=== PATIENT | female | born 1960 | race African-American/Black ===

== ENCOUNTER 2017-07-08 10:40 | Inpatient (IN) | payer MEDICARE, OTHER ==
[2017-07-08] MEDS ORDERED: Dextrose 50% Abboject 50 ML SYRINGE SLOW IVP PRN (13:23)
[2017-07-08] MEDS ORDERED: Dextrose 5% in Water 1,000 ML IV PRN (13:23)
--- NOTE | 2017-07-08 14:29 | HP ---
DATE OF ADMISSION: 07/08/2017 CHIEF COMPLAINT: Recent left total knee replacement here for therapy. BRIEF HISTORY: This is a 57-year-old overweight -[place] female with extensive medical histo ry including multiple endocrine neoplasias, intracranial aneurysms and recurrent DVT, was admitted to [facility] for left total knee replacement. She apparently was bridged with hep michelle. She underwent left total knee replacement and has been started back on her warfarin. She stat es that she continues to have significant numbness in her left leg and is unable to feel anything. S he also states that she is having trouble with urinary incontinence which started after the surgery. She denies any history of similar episodes in the past. She denies any fever or chills. She denies any chest pain or shortness of breath. She apparently has significant allergies to foods and medica tions. She has improved sufficiently that they feel that she would be a good candidate for therapy a nd currently, she states that she is in pain. She denies any other concerns or questions. PAST MEDICAL HISTORY: 1. 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 2. Hyperparathyroidism, requiring surgery. 3. Hypercoagulable state causing multiple DVTs, on long-term Coumadin. 4. History of IVC filter placement. 5. Cerebral aneurysm. 6. Obstructive sleep apnea. 7. Diabetes mellitus type 2. 8. Morbid obesity. PAST SURGICAL HISTORY: 1. Parathyroidectomy. 2. IVC filter placement. 3. Intracranial aneurysm clipping. 4. Right total knee replacement. 5. Left total knee replacement recently. 6. Multiple arthroscopies. 7. History of lipoma removal. ALLERGIES: Multiple allergies including PENICILLIN, ERYTHROMYCIN, ACTONEL, LOVENOX, IBUPROFEN, TRAMA DOL, and she states that morphine causes hallucinations, but she has been taking morphine here for pa in in the hospital without any issues. FAMILY HISTORY: Positive for multiple endocrine neoplasia. PSYCHOSOCIAL HISTORY: Retired from the . No tobacco, alcohol or IV drug abuse. She is adrienne ied. CURRENT MEDICATIONS: She has been transferred here on the following medications: 1. Warfarin 10 mg on Thursday, , Thursday, and 5 mg on other days. 2. 70/30 insulin 95 units b.i.d. 3. Protonix 80 mg daily. 4. Dilantin 300 mg daily. She is also on bromocriptine from home and carboxymethylcellulose eye bronson ps, vitamin D3 and aspirin. She is also to take hydrocodone 10/325 q.4 h p.r.n. sleep. REVIEW OF SYSTEMS: CARDIOVASCULAR SYSTEM: Denies any chest pain, shortness of breath, palpitations, paroxysmal nocturna l dyspnea, orthopnea, pedal edema. RESPIRATORY SYSTEM: Denies any chronic cough, expectoration or pleuritic type chest pain. GASTROINTESTINAL SYSTEM: Denies any nausea, vomiting, diarrhea, constipation, hematemesis, melena, h ematochezia. GENITOURINARY SYSTEM: Does have urinary incontinence. CENTRAL NERVOUS SYSTEM: Generalized weakness. MUSCULOSKELETAL SYSTEM: Pain in her left knee. OBJECTIVE: GENERAL: This is very pleasant 57-year-old overweight -[place] female resting comfortably in no acute distress. She responds appropriately to questions. She is alert, awake, and oriented x3. [employer] system has been done and she just came back up. VITAL SIGNS: I do not have any vital signs in the chart. HEENT: Normocephalic, atraumatic. Pupils equal and reactive to light and accommodation. NECK: No JVD, thyromegaly, cervical adenopathy, throat exudates or carotid bruits. CARDIOVASCULAR SYSTEM: S1, S2, rate and rhythm regular. RESPIRATORY SYSTEM: Normal vesicular breath sounds heard in all lung awan. ABDOMEN: Soft, obese, nontender, bowel sounds heard in all quadrants. EXTREMITIES: Without cyanosis or clubbing. Left knee incision with dressing, 1+ edema to the left l eg. CENTRAL NERVOUS SYSTEM: Grossly nonfocal except for weakness. She states that her left leg still fe els numb. LABORATORY VALUES: Pending. IMPRESSION: 1. Status post left total knee replacement. 2. History of multiple deep venous thromboses and inferior vena cava filter placement, on warfarin. 3. Multiple endocrine neoplasia type 1. 4. Diabetes mellitus type 2. 5. Pituitary adenoma, requiring bromocriptine. 6. Multiple allergies. 7. Deconditioning. PLAN: 1. An 1800-calorie heart healthy diet. 2. Dietary dietitian consult. 3. Continue warfarin and try to keep INR between 2 and 3. 4. Incision care. 5. Physical therapy. 6. Routine laboratory values. 7. Continue home medications. 8. Accu-Chek and sliding scale coverage. 9. Decubitus precautions. 10. Discussed with the patient in detail and all questions answered.
[2017-07-08] MEDS: HYDROcodone/Acetaminophen 10/325 mg Tablet PO PRN ×2 (14:52→23:06)
[2017-07-08 15:07] VITALS: BMI 50.1
--- NOTE | 2017-07-08 16:06 | ULT ---
LEFT LOWER EXTREMITY VENOUS DOPPLER ULTRASOUND: DATE: 07/08/17. HISTORY: Left lower extremity pain and swelling, recent left knee surgery. TECHNIQUE: Multiplanar, saucedo scale, sonographic imaging of the venous structures of the left lower extremity obt ained with color flow/spectral analysis. FINDINGS: The left common femoral vein, greater saphenous vein, profunda femoral vein, and femoral vein appear patent. Of note, the femoral vein in the mid thigh and distal thigh regions is limited in assessment secondary to body habitus. Popliteal vein is difficult to visualize but probably patent. The poste rior tibial vein is occluded with no blood flow seen. IMPRESSION: Limited assessment of the popliteal vein and distal femoral vein. No definite deep vein thrombosis. There is venous occlusion involving the posterior tibial vein. Results were relayed by the performing air sealing technician to Dr. Dietz at the time of performing thi s examination 07/08/17. CODE CR POS: SHA
[2017-07-08] MEDS ORDERED: Warfarin Sodium 5 MG TAB PO SCH (17:00)
[2017-07-08] MEDS: Warfarin Sodium 5 MG TAB PO SCH (17:25)
[2017-07-08] MEDS: Morphine 4 MG/ML Carpuject SLOW IVP PRN (19:53)
[2017-07-08] MEDS ORDERED: FLU VACC QS2017-18 36 mo. & older 0.5 ML SYRINGE IM ONE (21:00)
[2017-07-08] MEDS: Docusate 100 MG CAP PO SCH (21:10)
[2017-07-08] MEDS: Insulin NPH/Reg Insulin Hm 300 UNITS/3 ML VIAL SC SCH (21:10)
[2017-07-08] MEDS: BROMOCRIPTINE 2.5 MG PO SCH (21:13)
[2017-07-08] MEDS: Polyethylene Glycol 3350 17 GM Packet PO SCH (21:14)
[2017-07-09 06:05] LABS: INR-International Normal Ratio 1.8; Prothrombin Time 21.3 SEC (12.0-14.7)
[2017-07-09 06:06] LABS: #Basophils 0.1 thou/uL (0.0-0.2); #Eosinphils 0.1 thou/uL (0.0-0.7); #Lymphocytes 1.9 thou/uL (1.20-3.40); #Monocytes 0.8 thou/uL (0.11-0.59); #Neutrophils 3.7 thou/uL (1.40-6.50); %Basophils 1.7 % (0.0-1.0); %Lymphocytes 28.7 % (21.0-51.0); %Monocytes 11.9 % (0.0-10.0); %Neutrophils 56.7 % (42.0-75.0); Hemoglobin 10.3 g/dL (12.0-16.0); Mean Corpuscular HGB CONC 30.9 g/dL (32.0-36.0); Mean Corpuscular Hemoglobin 29.8 pg (27.0-31.0); Mean Corpuscular Volume 96.6 fl (81.0-99.0); Platelet Count 224 thou/uL (130-400); RBC Distribution Width 14.8 % (11.5-14.5); Red Blood Cell (RBC) Count 3.44 mill/uL (4.20-5.40); White Blood Cell (WBC) Count 6.6 thou/uL (4.8-10.8)
[2017-07-09 06:16] LABS: Anion Gap 13 mmol/L (10-20); BUN (Urea Nitrogen) 9 mg/dL (9.8-20.1); Calc. Creatinine Clearance 163 mL/min (70-130); Calcium 9.5 mg/dL (7.8-10.44); Carbon Dioxide 27 mmol/L (22-29); Chloride 104 mmol/L (98-107); Estimated GFR-MDRD Greater than 90; Potassium 3.9 mmol/L (3.5-5.1); Sodium 140 mmol/L (136-145)
[2017-07-09 06:25] LABS: Glucose 52 mg/dL (70-105)
[2017-07-09] MEDS: HYDROcodone/Acetaminophen 10/325 mg Tablet PO PRN ×2 (06:25→22:48)
[2017-07-09] MEDS: Docusate 100 MG CAP PO SCH ×2 (09:47→20:24)
[2017-07-09] MEDS: Aspirin 81 mg Enteric Coated Tablet PO SCH (09:48)
[2017-07-09] MEDS: BROMOCRIPTINE 2.5 MG PO SCH ×2 (09:48→20:21)
[2017-07-09] MEDS: Insulin NPH/Reg Insulin Hm 300 UNITS/3 ML VIAL SC SCH ×2 (09:49→20:31)
[2017-07-09] MEDS: Morphine 4 MG/ML Carpuject SLOW IVP PRN ×2 (11:00→15:41)
[2017-07-09] MEDS: Calcitriol 0.25 MCG CAP PO SCH (11:16)
[2017-07-09] MEDS ORDERED: Warfarin Sodium 5 MG TAB PO SCH (12:45)
--- NOTE | 2017-07-09 13:06 | PRG ---
DATE OF SERVICE: 07/09/2017 SUBJECTIVE: Ms. Angeles is doing well except for some pain in her left leg. Denies any chest pain or shortness of breath. Ordered a venous Doppler of her left lower extremity yesterday due to her havi ng significant pain and finding out that she was not completely bridged with heparin after the surger y, heparin was stopped when her INR was 1.6 day before yesterday and yesterday it was 1.6 as well. I have asked the nursing here to give her an extra 5 mg dose for a total of 10 mg yesterday and it is 1.8 today. Venous Doppler shows mostly old clot, but they cannot rule out a new DVT in the popliteal region. Since she has an IVC filter, advised her that it is okay for her to continue to participate with therapy and that I am going to give her another extra dose of 5 mg today and she should be ther apeutic tomorrow. OBJECTIVE: VITAL SIGNS: She is afebrile, heart rate 98, respirations 20, oxygen saturation 98%, blood pressure 135/60. CARDIOVASCULAR: S1, S2 plus. RESPIRATORY: Normal vesicular breath sounds. ABDOMEN: Soft, obese, nontender, bowel sounds heard in all quadrants. EXTREMITIES: Without cyanosis or clubbing. Left knee incision with dressing, evidence for chronic v enous stasis. LABORATORY VALUES: White count of 6.6, H&H is 10.3 and 33.2. Sodium 140, potassium 3.9, BUN and cre atinine is 9 and 0.66. Blood sugar was 52 this morning, it was 276 and 94 and 132 other times. IMPRESSION: 1. Degenerative joint disease, status post left total knee replacement. 2. Coagulopathy and history of recurrent deep venous thrombosis on long-term warfarin. 3. History of IVC filter placement. 4. Multiple endocrine neoplasia type 1. 5. Obesity. 6. Diabetes mellitus type 2. PLAN: 1. Warfarin total of 15 mg today, she is normally scheduled to get 10. 2. Continue with therapy. 3. Monitor laboratory values and blood sugars. 4. A 1800 calorie Heart healthy diet. 5. Incision care. 6. Routine laboratory values. 7. PT, OT evaluate and treat. 8. Discussed with the patient in detail and all questions answered.
[2017-07-09] MEDS: Warfarin Sodium 5 MG TAB PO SCH (17:22)
[2017-07-09] MEDS: Polyethylene Glycol 3350 17 GM Packet PO SCH (20:25)
[2017-07-10] MEDS: Morphine 4 MG/ML Carpuject SLOW IVP PRN ×3 (02:07→16:25)
[2017-07-10 05:38] LABS: INR-International Normal Ratio 1.9; Prothrombin Time 22.4 SEC (12.0-14.7)
[2017-07-10] MEDS: HumaLOG 300 UNITS/3 ML VIAL SC PRN ×2 (06:36→16:30)
[2017-07-10] MEDS: Calcitriol 0.25 MCG CAP PO SCH (09:19)
[2017-07-10] MEDS: Docusate 100 MG CAP PO SCH ×2 (09:19→20:47)
[2017-07-10] MEDS: Aspirin 81 mg Enteric Coated Tablet PO SCH (09:19)
[2017-07-10] MEDS: BROMOCRIPTINE 2.5 MG PO SCH ×2 (09:20→20:49)
[2017-07-10] MEDS: Insulin NPH/Reg Insulin Hm 300 UNITS/3 ML VIAL SC SCH ×2 (09:21→20:55)
--- NOTE | 2017-07-10 09:35 | PRG ---
DATE OF SERVICE: 07/10/2017 SUBJECTIVE: Ms. Angeles is doing well. She states that she feels better today. She denies any compl aints. Her CPM is here, spoke with therapy. I advised them that she is okay to participate in thera py. Her INR is 1.9 this morning, I anticipated it to be more than 2 soon since she got 15 mg of Coum [place] yesterday. No chest pain or shortness of breath. She has an IVC filter. OBJECTIVE: VITAL SIGNS: She is afebrile, heart rate 95, respirations are 18, oxygen saturation is documented as 10 last night and when I rechecked it this morning it was 97, blood pressure is 121/69. CARDIOVASCULAR SYSTEM: S1, S2 plus. RESPIRATORY SYSTEM: Normal vesicular breath sounds. ABDOMEN: Soft, nontender, bowel sounds heard in all quadrants. EXTREMITIES: Without cyanosis or clubbing. IMPRESSION: 1. Right status post total knee replacement. 2. Diabetes mellitus type 2 with fluctuating hypoglycemia. 3. Degenerative joint disease. 4. Coagulopathy requiring long-term warfarin. 5. History of recurrent deep venous thrombosis, status post inferior vena cava filter placement. 6. Multiple endocrine neoplasia type 1, obesity and deconditioning. PLAN: 1. Incision care. 2. Continue to adjust warfarin to get INR between 2 and 3. 3. Physical therapy. 4. CPM. 5. Adjust insulin. 6. Accu-Cheks with sliding scale coverage. 7. Pain control. 8. Nutritional support. 9. Physical therapy. 10. Discussed with patient in detail and all questions answered.
[2017-07-10] MEDS: Warfarin Sodium 5 MG TAB PO SCH (16:25)
[2017-07-10] MEDS ORDERED: Warfarin Sodium 5 MG TAB PO ONE (17:00)
[2017-07-10] MEDS: Polyethylene Glycol 3350 17 GM Packet PO SCH (20:47)
[2017-07-10] MEDS: HYDROcodone/Acetaminophen 10/325 mg Tablet PO PRN (22:26)
[2017-07-11] MEDS: HYDROcodone/Acetaminophen 10/325 mg Tablet PO PRN ×3 (03:43→14:23)
[2017-07-11] MEDS: Morphine 4 MG/ML Carpuject SLOW IVP PRN ×3 (05:21→19:25)
[2017-07-11 05:30] LABS: INR-International Normal Ratio 2.5; Prothrombin Time 27.9 SEC (12.0-14.7)
[2017-07-11] MEDS: Calcitriol 0.25 MCG CAP PO SCH (09:35)
[2017-07-11] MEDS: Insulin NPH/Reg Insulin Hm 300 UNITS/3 ML VIAL SC SCH ×3 (09:35→20:32)
[2017-07-11] MEDS: Docusate 100 MG CAP PO SCH ×2 (09:35→20:32)
[2017-07-11] MEDS: BROMOCRIPTINE 2.5 MG PO SCH ×2 (09:36→20:33)
[2017-07-11] MEDS: Aspirin 81 mg Enteric Coated Tablet PO SCH (09:36)
[2017-07-11] MEDS: HumaLOG 300 UNITS/3 ML VIAL SC PRN (11:06)
[2017-07-11] MEDS: Warfarin Sodium 5 MG TAB PO SCH (17:40)
[2017-07-11] MEDS: Polyethylene Glycol 3350 17 GM Packet PO SCH (20:34)
[2017-07-11] MEDS ORDERED: Insulin NPH/Reg Insulin Hm 300 UNITS/3 ML VIAL SC SCH (21:00)
--- NOTE | 2017-07-11 23:35 | PRG ---
DATE OF SERVICE: 07/11/2017 SUBJECTIVE: The patient is lying in bed, feels well, tolerating her CPM and physical therapy, is con cerned about her DVT, but warfarin has been continued and INR has been done today and is therapeutic. OBJECTIVE: Shows blood pressure is 142/68, O2 sat is 97%, respirations 18, pulse 90, afebrile. Labo ratory shows PT/INR is 2.5. Accu-Cheks do show some hypoglycemia in the afternoon, elevated in the m orning, very labile. White count 6600, hematocrit 33, hemoglobin 10. Lungs are clear. Cardiac exam ination shows regular rhythm. ASSESSMENT: 1. Resolving left total knee. 2. Stable deep venous thrombosis status post inferior vena cava filter and warfarin therapy. 3. Multiple endocrine neoplasia 1 stable, but with fluctuating sugars. PLAN: 1. Continue warfarin 5 mg on Thursday, Thursday, Thursday, and Thursday; 10 mg on Thursday, , and Thursday. 2. Decrease insulin to 30 units twice daily, Humulin N, monitor Accu-Cheks. 3. Continue therapy.
[2017-07-12] MEDS: Morphine 4 MG/ML Carpuject SLOW IVP PRN ×5 (00:04→20:58)
[2017-07-12 05:33] LABS: INR-International Normal Ratio 2.6; Prothrombin Time 29.1 SEC (12.0-14.7)
[2017-07-12] MEDS: Docusate 100 MG CAP PO SCH ×2 (08:58→21:03)
[2017-07-12] MEDS: Calcitriol 0.25 MCG CAP PO SCH (08:58)
[2017-07-12] MEDS: Aspirin 81 mg Enteric Coated Tablet PO SCH (08:58)
[2017-07-12] MEDS: BROMOCRIPTINE 2.5 MG PO SCH ×2 (08:59→20:59)
[2017-07-12] MEDS: Insulin NPH/Reg Insulin Hm 300 UNITS/3 ML VIAL SC SCH ×2 (09:06→21:02)
[2017-07-12] MEDS: Warfarin Sodium 5 MG TAB PO SCH (17:16)
[2017-07-12] MEDS: HumaLOG 300 UNITS/3 ML VIAL SC PRN (17:17)
[2017-07-12] MEDS: Polyethylene Glycol 3350 17 GM Packet PO SCH (21:02)
--- NOTE | 2017-07-12 21:02 | PRG ---
DATE OF SERVICE: 07/12/2017 SUBJECTIVE: The patient feels well with only complaints of left knee pain, but no shortness breath, chest pain, palpitations, headaches or dizziness. OBJECTIVE: Shows blood pressure 119/56, temperature 99.2, pulse 96, respirations 16, O2 sats 93%. L aboratory shows PT/INR is 29 and 2.6. Accu-Cheks range from 80-167. Left knee is swollen and tender , but not red or warm. Lungs are clear. Cardiac examination shows regular rhythm. ASSESSMENT: 1. Resolving left total knee replacement. 2. Stable thrombogenic status on warfarin and off Lovenox. 3. Type 2 diabetes, controlled. 4. Degenerative joint disease. PLAN: Continue warfarin at this dose of 10 mg Thursday, , Thursday and 5 mg Thursday, Thursday, W , Thursday and continue daily PT/INRs. Continue NPH 30 units subcu twice daily. Continue rang e of motion with left knee and physical therapy.
[2017-07-13] MEDS: HYDROcodone/Acetaminophen 10/325 mg Tablet PO PRN ×3 (02:32→18:06)
[2017-07-13 05:35] LABS: INR-International Normal Ratio 3.8; Prothrombin Time 39.6 SEC (12.0-14.7)
[2017-07-13] MEDS: Morphine 4 MG/ML Carpuject SLOW IVP PRN ×3 (07:57→19:59)
[2017-07-13] MEDS: Aspirin 81 mg Enteric Coated Tablet PO SCH (08:37)
[2017-07-13] MEDS: Docusate 100 MG CAP PO SCH ×2 (08:38→20:52)
[2017-07-13] MEDS: Calcitriol 0.25 MCG CAP PO SCH ×2 (08:38→10:03)
[2017-07-13] MEDS: Insulin NPH/Reg Insulin Hm 300 UNITS/3 ML VIAL SC SCH ×2 (08:40→20:50)
[2017-07-13] MEDS: BROMOCRIPTINE 2.5 MG PO SCH ×2 (08:41→20:51)
--- NOTE | 2017-07-13 20:49 | PRG ---
DATE OF SERVICE: 07/13/2017 SUBJECTIVE: Ms. Angeles is doing well. Denies any complaints. Having some left heel pain. She appa rently has a heel spur. I advised her that the best option is to try to wear cushioned shoes and ins oles. She is tolerating therapy and her INR was 3.8 today and I told her that I have given orders to hold her Coumadin if her INR is more than 3. Her family is in the room and no concerns or questions . OBJECTIVE: VITAL SIGNS: She is afebrile, heart rate is 111, respirations are 18, oxygen saturation is 100%, blo od pressure is 147/88. CARDIOVASCULAR: S1 and S2 plus. RESPIRATORY: Normal vesicular breath sounds. ABDOMEN: Soft, nontender, obese. Bowel sounds heard in all quadrants. EXTREMITIES: Without cyanosis or clubbing. Left knee incision with dressing chronic edema in the le g due to chronic DVT. IMPRESSION: 1. History of recurrent deep venous thrombosis, status post inferior vena cava filter placement. 2. Recent knee replacement. 3. Obesity. 4. Multiple endocrine neoplasia type 1. 5. Diabetes mellitus type 2. PLAN: 1. Continue . 2. Physical therapy. 3. Monitor PT/INR and maintain it between 2 and 3. 4. Decubitus precautions. 5. Nutritional support. 6. Accu-Cheks. 7. Routine laboratory values. 8. Discussed with the patient and family in detail and all questions answered.
[2017-07-13] MEDS: Polyethylene Glycol 3350 17 GM Packet PO SCH (20:54)
[2017-07-14] MEDS: Morphine 4 MG/ML Carpuject SLOW IVP PRN ×3 (00:08→17:53)
[2017-07-14 06:47] LABS: INR-International Normal Ratio 3.1
[2017-07-14] MEDS: Calcitriol 0.25 MCG CAP PO SCH (08:05)
[2017-07-14] MEDS: Aspirin 81 mg Enteric Coated Tablet PO SCH (08:05)
[2017-07-14] MEDS: Docusate 100 MG CAP PO SCH ×2 (08:06→20:56)
[2017-07-14] MEDS: Insulin NPH/Reg Insulin Hm 300 UNITS/3 ML VIAL SC SCH ×2 (08:07→20:55)
[2017-07-14] MEDS: BROMOCRIPTINE 2.5 MG PO SCH ×2 (08:08→20:59)
[2017-07-14] MEDS: HumaLOG 300 UNITS/3 ML VIAL SC PRN ×2 (11:43→17:01)
[2017-07-14] MEDS: HYDROcodone/Acetaminophen 10/325 mg Tablet PO PRN ×2 (11:47→15:32)
--- NOTE | 2017-07-14 14:03 | PRG ---
DATE OF SERVICE: 07/14/2017 SUBJECTIVE: Ms. Angeles is doing well. Pain in her left heel is improved using padding and insoles. She did walk with therapy. OBJECTIVE: VITAL SIGNS: She is afebrile, heart rate is 112, respirations 18, oxygen saturation 93%, blood press ure is 141/85. CARDIOVASCULAR: S1, S2 plus. RESPIRATORY: Normal vesicular breath sounds. ABDOMEN: Soft, obese, nontender, bowel sounds heard in all quadrants. EXTREMITIES: Left knee incision with dressing. LABORATORY DATA: INR is 3.1. Her blood sugars are 142, 148, 137, 250, 90 and 198. IMPRESSION: 1. History of recurrent deep venous thrombosis, status post inferior vena cava filter placement. 2. Recent left total knee replacement. 3. Diabetes mellitus type 2. 4. Multiple endocrine neoplasia type 1. 5. Left heel spur. 6. Degenerative joint disease. 7. Obesity. PLAN: 1. Coumadin 2.5 mg today. 2. Continue physical therapy. 3. Nutritional support. 4. DVT and stress ulcer prophylaxis. 5. Accu-Cheks with sliding scale coverage. 6. Decubitus precautions. 7. I discussed with the patient in detail and all questions answered.
[2017-07-14] MEDS ORDERED: Warfarin Sodium 2.5 MG TAB PO SCH (17:00)
[2017-07-14] MEDS: Polyethylene Glycol 3350 17 GM Packet PO SCH (21:00)
[2017-07-15] MEDS: Morphine 4 MG/ML Carpuject SLOW IVP PRN ×4 (00:33→20:40)
[2017-07-15 05:29] LABS: INR-International Normal Ratio 2.5; Prothrombin Time 28.1 SEC (12.0-14.7)
[2017-07-15] MEDS: Polyethylene Glycol 3350 17 GM Packet PO SCH (08:22)
[2017-07-15] MEDS: Calcitriol 0.25 MCG CAP PO SCH (09:27)
[2017-07-15] MEDS: Aspirin 81 mg Enteric Coated Tablet PO SCH (09:28)
[2017-07-15] MEDS: BROMOCRIPTINE 2.5 MG PO SCH ×2 (09:28→20:42)
[2017-07-15] MEDS: Docusate 100 MG CAP PO SCH ×2 (09:28→20:38)
[2017-07-15] MEDS: Insulin NPH/Reg Insulin Hm 300 UNITS/3 ML VIAL SC SCH ×2 (09:29→20:39)
[2017-07-15] MEDS: HYDROcodone/Acetaminophen 10/325 mg Tablet PO PRN (10:26)
[2017-07-15] MEDS: HumaLOG 300 UNITS/3 ML VIAL SC PRN (12:15)
--- NOTE | 2017-07-15 13:27 | PRG ---
DATE OF SERVICE: 07/15/2017 SUBJECTIVE: Ms. Angeles is doing well. Denies any complaints. She is up on the side of her bed eati ng lunch. She has been participating with therapy. Pain is improving. INR is 2.5. No bleeding. S he is complaining of some left groin pain and thinks she may have a urinary tract infection. We will order a urine culture. OBJECTIVE: VITAL SIGNS: She is afebrile, heart rate 103, respirations 20, oxygen saturation 100%, blood pressur e 139/63. CARDIOVASCULAR: S1, S2 plus. RESPIRATORY: Normal vesicular breath sounds. ABDOMEN: Soft, obese, nontender, bowel sounds heard in all quadrants. EXTREMITIES: Left knee incision with dressing. Trace edema. As stated INR is 2.5. IMPRESSION: 1. Status post left total knee replacement. 2. Coagulopathy requiring long-term anticoagulation. 3. Multiple endocrine neoplasia type I. 4. Diabetes mellitus type 2. 5. Obesity. Blood sugars are 198, 185, 180, 95, 183. PLAN: 1. Check urine culture. 2. Resume warfarin. 3. Nutritional support. 4. Accu-Cheks with sliding scale coverage. 5. Deep venous thrombosis and stress ulcer prophylaxis. 6. Decubitus precautions. 7. Routine laboratory values. 8. Dr. Gusman astronomy teacher from noon today until 9:00 p.m. Thursday.
[2017-07-15] MEDS: Warfarin Sodium 5 MG TAB PO SCH ×2 (14:56→17:05)
[2017-07-16 05:21] LABS: Prothrombin Time 23.1 SEC (12.0-14.7)
[2017-07-16] MEDS: HYDROcodone/Acetaminophen 10/325 mg Tablet PO PRN ×4 (06:07→23:50)
[2017-07-16] MEDS: Calcitriol 0.25 MCG CAP PO SCH (08:30)
[2017-07-16] MEDS: Docusate 100 MG CAP PO SCH ×2 (08:31→20:12)
[2017-07-16] MEDS: Aspirin 81 mg Enteric Coated Tablet PO SCH (08:31)
[2017-07-16] MEDS: Insulin NPH/Reg Insulin Hm 300 UNITS/3 ML VIAL SC SCH ×2 (08:33→20:13)
[2017-07-16] MEDS: BROMOCRIPTINE 2.5 MG PO SCH ×2 (08:34→20:15)
[2017-07-16] MEDS: Morphine 4 MG/ML Carpuject SLOW IVP PRN ×2 (10:45→17:02)
[2017-07-16] MEDS ORDERED: Morphine 4 MG/ML Carpuject ONE (16:53)
[2017-07-16] MEDS: Warfarin Sodium 5 MG TAB PO SCH ×2 (17:01→17:10)
[2017-07-16] MEDS: HumaLOG 300 UNITS/3 ML VIAL SC PRN ×2 (17:04→20:17)
[2017-07-16] MEDS: Polyethylene Glycol 3350 17 GM Packet PO SCH (20:14)
--- NOTE | 2017-07-17 | PRG ---
DATE OF SERVICE: 07/16/2017 SUBJECTIVE: The patient feels better, but still having some pain in her knee and unable to ambulate or transfer without assistance. Having no shortness of breath or chest pain. Having some dark urine , but with no dysuria. OBJECTIVE: VITAL SIGNS: Shows blood pressure is 135/63, O2 sat is 98%, respirations 18, pulse 91, temperature 9 9.3. LUNGS: Clear. CARDIAC: Examination shows regular rhythm. SKIN AND EXTREMITIES: Showed no edema, clubbing, cyanosis. There is still some swelling of the left knee, but with decreasing tenderness. LABORATORY DATA: Shows PT/INR is 23 and 2.0. Accu-Cheks range from 100 to 200. ASSESSMENT: 1. Resolving left total knee. 2. Stable deep venous thrombosis with long-term anticoagulation. 3. Stable multiple endocrine neoplasia with Accu-Cheks 100-200. PLAN: 1. She is on no antibiotics, only has MSSA distant infection. Continue anticoagulation with warfari n. 2. Continue insulin 30 units twice daily. 3. Continue Dilantin. 4. Continue pain relief. Also we will check results of urine culture done yesterday.
[2017-07-17 05:23] LABS: INR-International Normal Ratio 2.4; Prothrombin Time 27.5 SEC (12.0-14.7)
[2017-07-17] MEDS ORDERED: Morphine 4 MG/ML Carpuject ONE ×3 (07:51→17:26)
[2017-07-17] MEDS: Morphine 4 MG/ML Carpuject SLOW IVP PRN ×3 (08:22→17:28)
[2017-07-17] MEDS: HYDROcodone/Acetaminophen 10/325 mg Tablet PO PRN ×3 (08:25→17:31)
[2017-07-17] MEDS: Docusate 100 MG CAP PO SCH ×2 (08:25→21:25)
[2017-07-17] MEDS: Calcitriol 0.25 MCG CAP PO SCH (08:26)
[2017-07-17] MEDS: Aspirin 81 mg Enteric Coated Tablet PO SCH (08:26)
[2017-07-17] MEDS: Insulin NPH/Reg Insulin Hm 300 UNITS/3 ML VIAL SC SCH ×2 (08:27→21:26)
[2017-07-17] MEDS: BROMOCRIPTINE 2.5 MG PO SCH ×2 (08:29→21:25)
[2017-07-17] MEDS: Warfarin Sodium 5 MG TAB PO SCH (17:32)
[2017-07-17] MEDS: Polyethylene Glycol 3350 17 GM Packet PO SCH (21:26)
[2017-07-18 05:23] LABS: INR-International Normal Ratio 2.8; Prothrombin Time 31.1 SEC (12.0-14.7)
[2017-07-18] MEDS: HYDROcodone/Acetaminophen 10/325 mg Tablet PO PRN ×3 (08:40→17:09)
[2017-07-18] MEDS: Insulin NPH/Reg Insulin Hm 300 UNITS/3 ML VIAL SC SCH ×2 (08:40→20:56)
[2017-07-18] MEDS: Docusate 100 MG CAP PO SCH ×2 (08:40→20:58)
[2017-07-18] MEDS: Aspirin 81 mg Enteric Coated Tablet PO SCH (08:41)
[2017-07-18] MEDS: Calcitriol 0.25 MCG CAP PO SCH (08:41)
[2017-07-18] MEDS: BROMOCRIPTINE 2.5 MG PO SCH ×2 (08:41→20:57)
[2017-07-18] MEDS: Warfarin Sodium 5 MG TAB PO SCH (17:10)
[2017-07-18] MEDS: HumaLOG 300 UNITS/3 ML VIAL SC PRN (17:11)
[2017-07-18] MEDS: Polyethylene Glycol 3350 17 GM Packet PO SCH (20:59)
--- NOTE | 2017-07-19 01:38 | PRG ---
DATE OF SERVICE: 07/18/2017 SUBJECTIVE: The patient feels well with decreasing pain in her left knee moving it much more, bendin g it with therapy. She is having no shortness of breath, chest pain or palpitations. OBJECTIVE: VITAL SIGNS: Shows blood pressure is 133/73, temperature is 96, pulse 95, O2 sats 100%. LABORATORY DATA: PT/INR of 31 and 2.8. Accu-Cheks range 95-174. ASSESSMENT: 1. Resolving left total knee replacement. 2. Stable deep venous thrombosis on long-term anticoagulation with adequate anticoagulation. 3. Stable diabetes. 4. Asymptomatic multiple endocrine dysplasia. 5. Seizure disorder, well controlled. PLAN: Continue Dilantin. Continue Humulin N 30 units twice daily. Continue warfarin 5 mg Thursday, W , Thursday, and Thursday, 10 mg Thursday, and Thursday. Continue PT, OT.
--- NOTE | 2017-07-19 01:38 | PRG ---
DATE OF SERVICE: 07/18/2017 SUBJECTIVE: The patient is sitting up in the bed, working with her left knee. She states she has so me improvement and then has setbacks, is trying not to get discouraged. OBJECTIVE: Left knee does show ability to extend 108 degrees, but only able to flex 95 degrees. Chary gs are clear. Cardiac examination shows regular rhythm. Abdomen is soft and nontender. LABORATORY DATA: PT is 31, INR 2.8. Accu-Cheks 195-215. ASSESSMENT: 1. Resolving left total knee with slowly improving flexibility. 2. Stable deep venous thrombosis and thrombogenic stasis, on warfarin, INR 31-2.8. 3. Stable diabetes, controlled a goal to recently, but now, Accu-Cheks a little more than 200. 4. Multiple endocrine neoplasia, stable. PLAN: Continue PT, OT. Continue pain relief as needed. Continue Humulin N 30 units twice daily, odette nathan need to increase her Accu-Cheks remained above 200. Continue warfarin 5 mg alternating with 10 mg throughout the week.
[2017-07-19 05:27] LABS: INR-International Normal Ratio 3.3; Prothrombin Time 35.1 SEC (12.0-14.7)
[2017-07-19] MEDS: Aspirin 81 mg Enteric Coated Tablet PO SCH (08:33)
[2017-07-19] MEDS: Docusate 100 MG CAP PO SCH ×2 (08:33→20:44)
[2017-07-19] MEDS: Calcitriol 0.25 MCG CAP PO SCH (08:34)
[2017-07-19] MEDS: Insulin NPH/Reg Insulin Hm 300 UNITS/3 ML VIAL SC SCH ×2 (08:34→20:48)
[2017-07-19] MEDS: BROMOCRIPTINE 2.5 MG PO SCH ×2 (08:35→20:44)
[2017-07-19] MEDS: Warfarin Sodium 5 MG TAB PO SCH ×2 (10:31→12:05)
[2017-07-19] MEDS: HumaLOG 300 UNITS/3 ML VIAL SC PRN (11:34)
[2017-07-19] MEDS: HYDROcodone/Acetaminophen 10/325 mg Tablet PO PRN (13:03)
[2017-07-19] MEDS ORDERED: Warfarin Sodium 5 MG TAB PO SCH ×2 (17:00)
[2017-07-19] MEDS: Polyethylene Glycol 3350 17 GM Packet PO SCH (20:45)
[2017-07-20 05:56] LABS: Prothrombin Time 32.8 SEC (12.0-14.7)
[2017-07-20] MEDS: Docusate 100 MG CAP PO SCH ×2 (08:46→20:56)
[2017-07-20] MEDS: Aspirin 81 mg Enteric Coated Tablet PO SCH (08:46)
[2017-07-20] MEDS: Calcitriol 0.25 MCG CAP PO SCH (08:46)
[2017-07-20] MEDS: BROMOCRIPTINE 2.5 MG PO SCH ×2 (08:48→20:57)
[2017-07-20] MEDS: Insulin NPH/Reg Insulin Hm 300 UNITS/3 ML VIAL SC SCH ×2 (08:49→20:56)
--- NOTE | 2017-07-20 13:43 | PRG ---
DATE OF SERVICE: 07/20/2017 SUBJECTIVE: Ms. Angeles is doing well. Denies any complaints. Pain is slowly improving. She is doi ng well with therapy. She has a followup appointment with her orthopedic surgeon. No other concerns or questions. OBJECTIVE: VITAL SIGNS: She is afebrile, heart rate 96, respiration 18, oxygen saturation 99%, and blood pressu re is 139/66. CARDIOVASCULAR SYSTEM: S1 and S2 plus. RESPIRATORY SYSTEM: Normal vesicular breath sounds. ABDOMEN: Soft, nontender, bowel sounds heard in all quadrants. EXTREMITIES: Without cyanosis or clubbing. Left knee incision looks healthy. LABORATORY DATA: INR is 3.0 IMPRESSION: 1. History of coagulopathy on long-term warfarin. 2. History of deep venous thrombosis and pulmonary embolism. 3. Diabetes mellitus type 2. 4. Obesity. 5. Degenerative joint disease. 6. Multiple endocrine neoplasia type 1. PLAN: 1. Continue current medications. 2. Nutritional support. 3. DVT and stress ulcer prophylaxis. 4. Decubitus precautions. 5. Accu-Cheks with sliding scale coverage. 6. Physical therapy. 7. Discussed with the patient in detail and all questions answered.
[2017-07-20] MEDS ORDERED: Sodium Chloride 0.9% 20 ML ONE (14:11)
[2017-07-20] MEDS: Warfarin Sodium 5 MG TAB PO SCH (16:52)
[2017-07-20] MEDS: HYDROcodone/Acetaminophen 10/325 mg Tablet PO PRN (20:57)
[2017-07-21] MEDS: Polyethylene Glycol 3350 17 GM Packet PO SCH ×2 (00:30→21:06)
[2017-07-21] MEDS: HYDROcodone/Acetaminophen 10/325 mg Tablet PO PRN ×2 (04:57→18:19)
[2017-07-21 05:17] LABS: Hemoglobin 11.4 g/dL (12.0-16.0); Platelet Count 296 thou/uL (130-400)
[2017-07-21 05:25] LABS: INR-International Normal Ratio 2.4; Prothrombin Time 26.9 SEC (12.0-14.7)
[2017-07-21] MEDS: Insulin NPH/Reg Insulin Hm 300 UNITS/3 ML VIAL SC SCH ×2 (08:00→21:04)
[2017-07-21] MEDS: Aspirin 81 mg Enteric Coated Tablet PO SCH (08:02)
[2017-07-21] MEDS: Docusate 100 MG CAP PO SCH ×2 (08:02→21:02)
[2017-07-21] MEDS: BROMOCRIPTINE 2.5 MG PO SCH ×2 (08:03→21:06)
[2017-07-21] MEDS: Calcitriol 0.25 MCG CAP PO SCH (08:03)
--- NOTE | 2017-07-21 13:36 | PRG ---
DATE OF SERVICE: 07/21/2017 SUBJECTIVE: Ms. Angeles is doing well. Denies any complaints, resting comfortably. She has about 78 degrees of flexion in her knee. She is improving with therapy. Pain is controlled. She wants to t aper off her morphine and just stop it. OBJECTIVE: VITAL SIGNS: She is afebrile, heart rate 103, respirations 18, and blood pressure is 101/51. CARDIOVASCULAR SYSTEM: S1, S2 plus. RESPIRATORY SYSTEM: Normal vesicular breath sounds. ABDOMEN: Soft, nontender, bowel sounds heard in all quadrants. EXTREMITIES: Without cyanosis or clubbing. Peripheral pulses are palpable. CENTRAL NERVOUS SYSTEM: Grossly nonfocal. Incision is healthy. IMPRESSION: 1. Status post left total knee replacement. 2. Coagulopathy requiring correction warfarin; her today's INR is 2.4. 3. Diabetes mellitus type 2. 4. Multiple endocrine neoplasia type 1. 5. Obesity. PLAN: 1. Continue current medications. 2. Nutritional support. 3. Decrease morphine to 2 mg q.6 p.r.n. for incision care. 4. Physical therapy. 5. Routine laboratory values.
[2017-07-21] MEDS: Warfarin Sodium 5 MG TAB PO SCH (16:31)
[2017-07-22] MEDS: HYDROcodone/Acetaminophen 10/325 mg Tablet PO PRN ×3 (00:53→16:11)
[2017-07-22 05:30] LABS: INR-International Normal Ratio 2.4
[2017-07-22] MEDS: Aspirin 81 mg Enteric Coated Tablet PO SCH (07:33)
[2017-07-22] MEDS: Calcitriol 0.25 MCG CAP PO SCH (07:34)
[2017-07-22] MEDS: Docusate 100 MG CAP PO SCH ×2 (07:35→20:55)
[2017-07-22] MEDS: Insulin NPH/Reg Insulin Hm 300 UNITS/3 ML VIAL SC SCH ×2 (07:36→20:55)
[2017-07-22] MEDS: BROMOCRIPTINE 2.5 MG PO SCH ×2 (07:37→20:53)
--- NOTE | 2017-07-22 13:27 | PRG ---
DATE OF SERVICE: 07/22/2017 SUBJECTIVE: Ms. Angeles is doing well. Denies any complaints, resting comfortably, tolerating her me dications. Saw her orthopedic surgeon and had juan carlos removed. She also had an injection for her he el spur pain. No other concerns or questions. OBJECTIVE: VITAL SIGNS: She is afebrile, heart rate is 102, respirations 18, oxygen saturation 96%, blood press ure is 142/69. CARDIOVASCULAR SYSTEM: S1, S2 plus. RESPIRATORY SYSTEM: Normal vesicular breath sounds. ABDOMEN: Soft, obese, nontender, bowel sounds heard in all quadrants. EXTREMITIES: Without cyanosis or clubbing. Left knee incision is healthy. LABORATORY DATA: Chemistry shows blood sugars 119, 113, 225, 60, and 133. INR is 2.4. IMPRESSION: 1. Status post left total knee replacement. 2. Multiple endocrine neoplasia type 1. 3. Diabetes mellitus type 2. 4. Coagulopathy with history of deep venous thrombosis. 5. Obesity. 6. Deconditioning. PLAN: 1. Continue physical therapy. 2. Nutritional support. 3. A 1800-calorie heart healthy diet. 4. Monitor blood pressure and Accu-Cheks. 5. DVT and stress ulcer prophylaxis. She is on warfarin and is therapeutic. 6. Routine laboratory values. 7. Discussed with the patient in detail and all questions answered.
[2017-07-22] MEDS: Warfarin Sodium 5 MG TAB PO SCH (16:11)
[2017-07-22] MEDS: HumaLOG 300 UNITS/3 ML VIAL SC PRN (16:13)
[2017-07-22] MEDS: Polyethylene Glycol 3350 17 GM Packet PO SCH (20:54)
[2017-07-23] MEDS: HYDROcodone/Acetaminophen 10/325 mg Tablet PO PRN ×4 (00:40→23:13)
[2017-07-23 05:14] LABS: Hemoglobin 11.2 g/dL (12.0-16.0); Platelet Count 232 thou/uL (130-400)
[2017-07-23 05:29] LABS: INR-International Normal Ratio 2.8; Prothrombin Time 30.9 SEC (12.0-14.7)
[2017-07-23] MEDS: Aspirin 81 mg Enteric Coated Tablet PO SCH (09:19)
[2017-07-23] MEDS: Calcitriol 0.25 MCG CAP PO SCH (09:19)
[2017-07-23] MEDS: Docusate 100 MG CAP PO SCH ×2 (09:20→21:10)
[2017-07-23] MEDS: Insulin NPH/Reg Insulin Hm 300 UNITS/3 ML VIAL SC SCH ×2 (09:21→21:10)
[2017-07-23] MEDS: BROMOCRIPTINE 2.5 MG PO SCH ×2 (09:22→21:09)
--- NOTE | 2017-07-23 13:28 | PRG ---
DATE OF SERVICE: 07/23/2017 SUBJECTIVE: Ms. Angeles is doing well. She is complaining of some tingling and burning sensation in her feet. She apparently was on gabapentin in the past, but it was stopped for unknown reason. I as ked her if she had any swelling, any nausea with that, she states no, she said to I advised her to ch joe with her PCP as to why it was stopped before I get her back on it again. I told her from what I reviewed on her records that she does not have a contraindication for the gabapentin. OBJECTIVE: VITAL SIGNS: She is afebrile, heart rate 92, respirations 20, oxygen saturation 96%, and blood press ure is 137/84. CARDIOVASCULAR: S1 and S2 plus. RESPIRATORY: Normal vesicular breath sounds. ABDOMEN: Soft, obese, nontender, bowel sounds heard in all quadrants. EXTREMITIES: Without cyanosis or clubbing. Left knee incision with Steri tape. LABORATORY DATA: H&H is 11.2 and 34.5. INR is 2.8. IMPRESSION: 1. Status post left total knee replacement. 2. Multiple endocrine neoplasia type 1. 3. Diabetes mellitus type 2. 4. Obesity. 5. Possible peripheral neuropathy. 6. History of recurrent deep vein thrombosis, on long-term anticoagulation. PLAN: 1. Continue current medications. 2. Nutritional support. 3. A 1800-calorie heart healthy diet. 4. DVT and stress ulcer prophylaxis. 5. Decubitus precautions. 6. Continue warfarin. 7. Physical therapy. 8. Accu-Cheks with sliding scale coverage.
[2017-07-23] MEDS: Warfarin Sodium 5 MG TAB PO SCH (16:38)
[2017-07-23] MEDS: HumaLOG 300 UNITS/3 ML VIAL SC PRN (17:43)
[2017-07-23] MEDS: Polyethylene Glycol 3350 17 GM Packet PO SCH (21:10)
[2017-07-24 05:22] LABS: INR-International Normal Ratio 2.9; Prothrombin Time 31.3 SEC (12.0-14.7)
[2017-07-24] MEDS: Aspirin 81 mg Enteric Coated Tablet PO SCH (08:08)
[2017-07-24] MEDS: Calcitriol 0.25 MCG CAP PO SCH (08:08)
[2017-07-24] MEDS: Docusate 100 MG CAP PO SCH ×2 (08:11→21:30)
[2017-07-24] MEDS: Insulin NPH/Reg Insulin Hm 300 UNITS/3 ML VIAL SC SCH ×2 (08:13→21:32)
[2017-07-24] MEDS: HYDROcodone/Acetaminophen 10/325 mg Tablet PO PRN ×4 (08:14→22:23)
[2017-07-24] MEDS: BROMOCRIPTINE 2.5 MG PO SCH (08:15)
--- NOTE | 2017-07-24 09:28 | PRG ---
DATE OF SERVICE: 07/24/2017 SUBJECTIVE: Ms. Angeles is doing well. Denies any complaints, resting comfortably. She is still not icing some stiffness in her left foot. She did call her primary care physician's office to find out why she was taken off of her gabapentin. When she gets the information then we will decide whether che torres can get her back on the gabapentin or something similar for what seems like peripheral neuropathy p ain. OBJECTIVE: VITAL SIGNS: She is afebrile, heart rate 98, respirations 18, oxygen saturation 98%, blood pressure is 140/72. CARDIOVASCULAR: S1, S2 plus. RESPIRATORY: Normal vesicular breath sounds. ABDOMEN: Soft, nontender, bowel sounds heard in all quadrants. EXTREMITIES: Without cyanosis or clubbing. Left knee incision with steady trace edema. LABORATORY VALUES: Her INR is 2.9. Chemistry shows blood sugars are 144, 155, 169, 165 and 130. IMPRESSION: 1. Status post left total knee replacement. 2. Coagulopathy with history of recurrent deep venous thrombosis on long-term anticoagulation. 3. Diabetes mellitus type 2, well controlled. 4. Multiple endocrine neoplasia type 1. 5. Obesity. 6. Improving deconditioning. 7. Peripheral neuropathy. PLAN: 1. Continue current medications. 2. Physical therapy. 3. Warfarin. 4. DVT and stress ulcer prophylaxis. 5. Decubitus precautions. 6. Await information from her PCP. 7. I discussed with the patient in detail and all questions answered.
[2017-07-24] MEDS: Warfarin Sodium 5 MG TAB PO SCH ×2 (17:03→17:05)
[2017-07-24] MEDS: Bromocriptine 2.5 MG TAB PO SCH (17:04)
[2017-07-24] MEDS: Polyethylene Glycol 3350 17 GM Packet PO SCH (21:33)
[2017-07-25] MEDS: HYDROcodone/Acetaminophen 10/325 mg Tablet PO PRN ×4 (05:12→21:33)
[2017-07-25] MEDS: Docusate 100 MG CAP PO SCH ×2 (08:58→21:33)
[2017-07-25] MEDS: Aspirin 81 mg Enteric Coated Tablet PO SCH (08:58)
[2017-07-25] MEDS: Insulin NPH/Reg Insulin Hm 300 UNITS/3 ML VIAL SC SCH ×2 (08:59→21:34)
[2017-07-25] MEDS: Bromocriptine 2.5 MG TAB PO SCH ×2 (10:04→16:14)
[2017-07-25] MEDS: Calcitriol 0.25 MCG CAP PO SCH (10:05)
--- NOTE | 2017-07-25 10:40 | PRG ---
DATE OF SERVICE: 07/25/2017 HISTORY OF PRESENT ILLNESS: Ms. Angeles is a 57-year-old black female with multiple endocrine neoplas ia type 1, intracranial aneurysms, recurrent DVTs. The patient was admitted to [facility] with left total knee replacement. Postoperatively, she was started back on warfarin and tr ansferred here. The patient has had significant problems with pain in the past and is a couple of we eks postop, still requesting her IV morphine. Last night I was called because the patient somehow pulled out her PICC line and denied IV access as a peripheral line. This morning, the patient is upset because she states that we should not have to be checking her INR daily. She does not understand that her Coumadin was recently changed and that she eats differently than she usually does here. INR in the last 3 days is 2.4, 2.8, and 2.9 and she denied them getting any blood or restarting IV on her today. Her Coumadin is typically 5 mg daily and 10 mg on Thursday. Patient's sugars this morning was 91. Yesterday it was 103 fasting, 108 before lunch, 134 before sup per and 177 before bedtime. The patient refuses Coumadin level, PT/INR this morning. I had a very long discussion with the patie nt and she is adamant about not wanting her to be stuck for Coumadin level and I told her that when s he does that she has to assume the risk that she may have a bleed. Her response was that she has bee n on Coumadin for many years and has never had to have her Coumadin check like this. Nonetheless, he r IV is out and she is on IV morphine 2 mg slow IV push. We will not restart her morphine. She has [place] 10 ordered and then that should be more than adequate for her pain control. PHYSICAL EXAMINATION: VITAL SIGNS: Today reveal blood pressure 136/63, pulse 89 and then 101, respirations 18-20, O2 satur ation 98-100%, T-max 98.6. GENERAL: This is a well-developed, well-nourished, somewhat obese black female in no apparent distre ss at this time. HEENT: Reveals normocephalic, nontraumatic cranium. Nose and throat are slightly dry. NECK: Supple, without masses, nodes or bruits. LUNGS: Chest is clear to auscultation. No rales, no rhonchi, no wheezes. No cough is heard. CARDIOVASCULAR: Reveals a regular rate and rhythm without murmurs, gallops or rubs. ABDOMEN: Obese, soft, nontender. Normal bowel sounds in all 4 quadrants. : Deferred. EXTREMITIES: Reveal no clubbing, cyanosis or edema. Left knee incision is clear. LABORATORY DATA: No labs were drawn because the patient's refusal this morning. IMPRESSION: 1. Status post total left knee. 2. Coagulopathy with history of recurrent deep venous thrombosis, on long-term anticoagulation. 3. Patient was refusing PT/INRs this morning. I tried to convince her to at least get a level tomor row. 4. Diabetes type 2, fairly well controlled. 5. Multiple endocrine neoplasia type 1. 6. Obesity. 7. Peripheral neuropathy. 8. Improving deconditioning. 9. PICC line out. PLAN: 1. Continue present medication. 2. Encouraged the patient to do her PT/INR tomorrow. 3. Continue warfarin on the same dose. 4. DVT and stress ulcer prophylaxis with Coumadin. 5. Decubitus precautions. 6. Encouragement to follow her compliance.
[2017-07-25] MEDS: Warfarin Sodium 5 MG TAB PO SCH (16:17)
[2017-07-25] MEDS: Polyethylene Glycol 3350 17 GM Packet PO SCH (21:34)
[2017-07-26] MEDS: HumaLOG 300 UNITS/3 ML VIAL SC PRN (05:29)
[2017-07-26 06:04] LABS: INR-International Normal Ratio 2.8; Prothrombin Time 30.3 SEC (12.0-14.7)
[2017-07-26] MEDS: HYDROcodone/Acetaminophen 10/325 mg Tablet PO PRN ×3 (06:24→21:48)
--- NOTE | 2017-07-26 07:33 | PRG ---
DATE OF SERVICE: 07/26/2017 DATE OF ADMISSION: 07/08/2017 HISTORY OF PRESENT ILLNESS: Ms. Angeles is a 57-year-old black female with multiple endocrine neoplas ia type 1, intracranial aneurysms, recurrent DVTs and recent total knee done at [facility]. Postoperatively, she was restarted on her warfarin and transferred here. Patient actually is doing fairly well today. She has no complaints except she said that the Cymbalta for her anxiety and her back pain made a little woozy yesterday. She states she did not take with f ood, so we will try that again today. The patient still has her PICC line out, and we will not need to restart it. The patient and I did discuss that her INR was 2.8 this morning, so it was stabilized, most likely sh e will not need to have morning q.a.m. INR. I will discontinue that because she is refusing it. Oth erwise, patient has no complaints today. PHYSICAL EXAMINATION: VITAL SIGNS: Reveals 169/76 this morning, pulse 89-99, respirations 18, O2 sat 97%-100%, T-max 98.6. GENERAL: This is a well-developed, well-nourished, slightly obese black female in no apparent distre ss at this time. HEENT: Reveals normocephalic, nontraumatic cranium. Pupils are equally round and reactive. Extraoc ular movements intact. Nose and throat are slightly dry. NECK: Supple, without masses, nodes or bruits. LUNGS: Chest is clear to auscultation. No rales, rhonchi or wheezes are heard. No cough is noted. HEART: Reveals a regular rate and rhythm without murmurs, gallops or rubs. ABDOMEN: Obese, soft, nontender, without organomegaly. Normal bowel sounds are noted. No rebound o r guarding is noted. GENITOURINARY: Deferred. EXTREMITIES: Reveal no clubbing, cyanosis or edema. Left knee incision looks very good. LABORATORY DATA: INR this morning was 2.8. Fasting sugar this morning was 172. IMPRESSION: 1. Status post total left knee. 2. History of coagulopathy with deep venous thrombosis in the past, presently INR was 2.8. 3. Diabetes type 2, stable. 4. Multiple endocrine neoplasia type 1. 5. Obesity. 6. Peripheral neuropathy. 7. Improving deconditioning. 8. PICC line is out. 9. Anxiety depressive disorder. 10. Chronic pain syndrome. PLAN: 1. Retry Cymbalta 30 mg in the middle of her breakfast this morning. 2. We will not repeat daily PT/INR as per patient request since she is stable. 3. Continue same dose of warfarin. 4. DVT prophylaxis. 5. Stress ulcer prophylaxis. 6. Decubitus precautions. 7. Continue to encourage the patient for compliance.
[2017-07-26] MEDS: Calcitriol 0.25 MCG CAP PO SCH (08:58)
[2017-07-26] MEDS: Bromocriptine 2.5 MG TAB PO SCH ×2 (09:00→17:12)
[2017-07-26] MEDS: Aspirin 81 mg Enteric Coated Tablet PO SCH (09:00)
[2017-07-26] MEDS: Docusate 100 MG CAP PO SCH ×2 (09:01→21:41)
[2017-07-26] MEDS: Insulin NPH/Reg Insulin Hm 300 UNITS/3 ML VIAL SC SCH ×2 (09:02→21:42)
[2017-07-26] MEDS ORDERED: Loperamide HCl 2 MG CAP PO PRN (14:06)
[2017-07-26] MEDS ORDERED: Loperamide HCl 2 MG CAP PO SCH (14:15)
[2017-07-26] MEDS: Warfarin Sodium 5 MG TAB PO SCH (17:12)
[2017-07-26] MEDS: Polyethylene Glycol 3350 17 GM Packet PO SCH (21:42)
[2017-07-27] MEDS: Bromocriptine 2.5 MG TAB PO SCH ×2 (08:23→16:54)
[2017-07-27] MEDS: Docusate 100 MG CAP PO SCH ×2 (08:24→20:44)
[2017-07-27] MEDS: Calcitriol 0.25 MCG CAP PO SCH (08:24)
[2017-07-27] MEDS: Aspirin 81 mg Enteric Coated Tablet PO SCH (08:24)
[2017-07-27] MEDS: Insulin NPH/Reg Insulin Hm 300 UNITS/3 ML VIAL SC SCH ×2 (08:25→20:45)
[2017-07-27] MEDS: HYDROcodone/Acetaminophen 10/325 mg Tablet PO PRN ×3 (08:26→20:51)
--- NOTE | 2017-07-27 13:34 | PRG ---
DATE OF SERVICE: 07/27/2017 SUBJECTIVE: Ms. Angeles is doing well except she is in pain. Her PICC line came out and she is not g etting any morphine. She states that 1 Sizerock is not enough. She is doing well otherwise. She still has not heard from her PCP's office about the gabapentin and the Lyrica. She also wants to know if we can do her PT/INR every other day. OBJECTIVE: VITAL SIGNS: She is afebrile, heart rate is 95, respirations are 18, oxygen saturation 97%, blood pr essure is 137/74. CARDIOVASCULAR SYSTEM: S1, S2 plus. RESPIRATORY SYSTEM: Normal vesicular breath sounds. ABDOMEN: Soft, nontender, obese. Bowel sounds heard in all quadrants. EXTREMITIES: Without cyanosis or clubbing. Trace edema. IMPRESSION: 1. Status post left total knee replacement. 2. Multiple endocrine neoplasia, type 1. 3. Diabetes mellitus, type 2. 4. Obesity. 5. Improving deconditioning. 6. Coagulopathy on long-term warfarin with stable INR. PLAN: 1. Discontinue daily INRs. 2. Increase Sizerock to two 10/325 q.6 hours p.r.n. 3. Continue other medications. 4. Await the information from her PCP as to the gabapentin. 5. A 1800-calorie heart healthy diet. 6. Physical therapy. 7. Routine laboratory values.
[2017-07-27] MEDS: Warfarin Sodium 5 MG TAB PO SCH (16:54)
[2017-07-27] MEDS: Polyethylene Glycol 3350 17 GM Packet PO SCH (20:45)
[2017-07-28] MEDS: Calcitriol 0.25 MCG CAP PO SCH (08:01)
[2017-07-28] MEDS: Bromocriptine 2.5 MG TAB PO SCH ×2 (08:01→17:22)
[2017-07-28] MEDS: Aspirin 81 mg Enteric Coated Tablet PO SCH (08:01)
[2017-07-28] MEDS: Insulin NPH/Reg Insulin Hm 300 UNITS/3 ML VIAL SC SCH ×2 (08:02→20:35)
[2017-07-28] MEDS: Docusate 100 MG CAP PO SCH ×2 (08:02→20:34)
[2017-07-28] MEDS: HYDROcodone/Acetaminophen 10/325 mg Tablet PO PRN ×4 (08:03→21:25)
--- NOTE | 2017-07-28 13:29 | PRG ---
DATE OF SERVICE: 07/28/2017 SUBJECTIVE: Ms. Angeles is doing well. Denies any complaints, resting comfortably. OBJECTIVE: VITAL SIGNS: She is afebrile, heart rate is 97, respirations 20, oxygen saturation 96%, blood pressu re is 129/74. CARDIOVASCULAR SYSTEM: S1, S2 plus. RESPIRATORY SYSTEM: Normal vesicular breath sounds. ABDOMEN: Soft, obese, nontender, bowel sounds heard in all quadrants. EXTREMITIES: Without cyanosis or clubbing. LABORATORY DATA: Blood sugars are 153, 152, 152, and 110. IMPRESSION: 1. Status post left total knee replacement. 2. Multiple endocrine neoplasia type 1. 3. Diabetes mellitus type 2. 4. Obesity. 5. Improving deconditioning. PLAN: 1. Continue current medications. 2. Nutritional support. 3. DVT and stress ulcer prophylaxis. 4. Decubitus precautions. 5. Incision care. 6. Accu-Cheks with sliding scale coverage. 7. Monitor PT and INR. 8. Anticipate discharging her home on Thursday.
[2017-07-28] MEDS: Warfarin Sodium 5 MG TAB PO SCH (17:22)
[2017-07-28] MEDS: Polyethylene Glycol 3350 17 GM Packet PO SCH (20:36)
[2017-07-29] MEDS: HYDROcodone/Acetaminophen 10/325 mg Tablet PO PRN ×4 (02:37→21:17)
[2017-07-29] MEDS: Bromocriptine 2.5 MG TAB PO SCH ×2 (09:03→17:02)
[2017-07-29] MEDS: Calcitriol 0.25 MCG CAP PO SCH (09:03)
[2017-07-29] MEDS: Aspirin 81 mg Enteric Coated Tablet PO SCH (09:03)
[2017-07-29] MEDS: Docusate 100 MG CAP PO SCH ×2 (09:04→20:08)
[2017-07-29] MEDS: Insulin NPH/Reg Insulin Hm 300 UNITS/3 ML VIAL SC SCH ×2 (09:06→20:09)
--- NOTE | 2017-07-29 12:07 | PRG ---
SUBJECTIVE: Ms. Anglees is doing well. Denies any complaints, resting comfortably, tolerating her th erapy. OBJECTIVE: VITAL SIGNS: She is afebrile, heart rate is 88, respirations 20, oxygen sats 100%, blood pressure 13 6/65. CARDIOVASCULAR SYSTEM: S1, S2 plus. RESPIRATORY SYSTEM: Normal vesicular breath sounds. ABDOMEN: Soft, nontender, bowel sounds heard in all quadrants. EXTREMITIES: Without cyanosis or clubbing. Left knee incision is healthy. IMPRESSION: 1. Multiple endocrine neoplasia type 1. 2. Diabetes mellitus type 2, well controlled. 3. Left knee total knee replacement. 4. Coagulopathy with recurrent deep venous thromboses, on long-term warfarin. 5. Obesity. 6. Possible peripheral neuropathy. PLAN: 1. Continue current medications. 2. Nutritional support. 3. DVT and stress ulcer prophylaxis. 4. Decubitus precautions.
[2017-07-29] MEDS: Warfarin Sodium 5 MG TAB PO SCH (17:02)
[2017-07-29] MEDS: Polyethylene Glycol 3350 17 GM Packet PO SCH (20:10)
[2017-07-30 06:45] LABS: Prothrombin Time 44.2 SEC (12.0-14.7)
[2017-07-30 07:55] LABS: INR-International Normal Ratio 4.4
[2017-07-30] MEDS: HYDROcodone/Acetaminophen 10/325 mg Tablet PO PRN ×3 (08:41→19:45)
[2017-07-30] MEDS: Calcitriol 0.25 MCG CAP PO SCH (09:35)
[2017-07-30] MEDS: Aspirin 81 mg Enteric Coated Tablet PO SCH (09:36)
[2017-07-30] MEDS: Docusate 100 MG CAP PO SCH ×2 (09:36→19:44)
[2017-07-30] MEDS: Bromocriptine 2.5 MG TAB PO SCH ×2 (09:36→16:57)
[2017-07-30] MEDS: Insulin NPH/Reg Insulin Hm 300 UNITS/3 ML VIAL SC SCH ×2 (09:38→19:48)
[2017-07-30] MEDS: HumaLOG 300 UNITS/3 ML VIAL SC PRN ×2 (11:50→16:57)
--- NOTE | 2017-07-30 13:00 | PRG ---
DATE OF SERVICE: 07/30/2017 SUBJECTIVE: Ms. Angeles is doing well except for some constipation. She apparently took some Imodium over the weekend because she was having diarrhea. She also apparently has not been eating or drinki ng well. She is excited about going home tomorrow. OBJECTIVE: VITAL SIGNS: She is afebrile, heart rate 95, respirations 14, oxygen saturation 100%, blood pressure is 140/70. CARDIOVASCULAR: S1, S2 plus. RESPIRATORY: Normal vesicular breath sounds. ABDOMEN: Soft, obese, nontender, bowel sounds heard in all quadrants. EXTREMITIES: Without cyanosis or clubbing. Trace edema. CENTRAL NERVOUS SYSTEM: Improving deconditioning. Left knee incision looks healthy. LABORATORY VALUES: INR is 4.4. IMPRESSION: 1. Status post left total knee replacement. 2. Multiple endocrine neoplasia type 1. 3. Diabetes mellitus type 2. Blood sugars are 153, 123, 157 and 175. 4. Coagulopathy requiring long-term warfarin. 5. Obesity. 6. Possible peripheral neuropathy. PLAN: 1. Hold warfarin today. 2. Recheck PT/INR tomorrow. 3. Discharge her home tomorrow. 4. [facility] 5. Outpatient follow up with surgeon. 6. 1800 calorie heart healthy diet. 7. I discussed with the patient in detail and all questions answered. 8. High fiber diet. 9. She is already on a stool softener.
[2017-07-30] MEDS ORDERED: Warfarin Sodium 5 MG TAB PO SCH (17:00)
[2017-07-30] MEDS: Polyethylene Glycol 3350 17 GM Packet PO SCH (19:47)
[2017-07-31] MEDS: HYDROcodone/Acetaminophen 10/325 mg Tablet PO PRN ×2 (01:47→08:17)
[2017-07-31] MEDS: Docusate 100 MG CAP PO SCH (08:19)
[2017-07-31] MEDS: Calcitriol 0.25 MCG CAP PO SCH (08:19)
[2017-07-31] MEDS: Aspirin 81 mg Enteric Coated Tablet PO SCH (08:19)
[2017-07-31] MEDS: Bromocriptine 2.5 MG TAB PO SCH (08:19)
[2017-07-31] MEDS: Insulin NPH/Reg Insulin Hm 300 UNITS/3 ML VIAL SC SCH (08:25)
[2017-07-31 09:34] LABS: INR-International Normal Ratio 2.8; Prothrombin Time 30.5 SEC (12.0-14.7)
[2017-07-31 10:30] VITALS: BP 163/80; TEMP 98.2
--- NOTE | 2017-07-31 10:47 | DIS ---
DATE OF ADMISSION: 07/08/2017 DATE OF DISCHARGE: 07/31/2017 PRINCIPAL DIAGNOSIS: Degenerative joint disease, status post left total knee replacement. SECONDARY DIAGNOSES: 1. Deep vein thrombosis, left lower extremity, some of it may be new. She came to us on subtherapeu tic warfarin. 2. Multiple endocrine neoplasia type 1. 3. Diabetes mellitus type 2. 4. Hypercoagulable state with multiple deep venous thromboses requiring long-term Coumadin. 5. History of cerebral aneurysm. 6. Obstructive sleep apnea. 7. Morbid obesity. 8. History of inferior vena cava filter placement. 9. History of parathyroidectomy. 10. History of intracranial aneurysm clipping. 11. Multiple orthopedic surgeries. COMPLICATIONS: None. ADVERSE REACTIONS: None. PROCEDURES: None. CONSULTATIONS: Physical Therapy and Occupational Therapy. HOSPITAL COURSE: The patient was admitted on 07/08/2017 after undergoing left knee replacement. She came to us for therapy. She was supposed to have been bridged with heparin. When she came to us, s he had significant swelling in her left leg and did a stat INR and her INR was 1.6. [facility] and apparently her INR the day before was 1.6 as well. Her heparin was apparently stopped. At [facility] a day prior to transfer according to the nurse, we gave her an extra dose of warfarin here and d id a venous Doppler, which showed possible new DVT. She does have an IVC filter, so I did not start her on heparin. The next day, her INR was 1.8 and then it became therapeutic. She has been managed on warfarin 5 mg alternating with 10 mg. She has been doing well with therapy. She has gotten flexi on of almost 80-85 degrees. She was deemed stable for discharge to home. She will continue outpatie nt therapy and follow up with her orthopedic surgeon and primary care physician. No other concerns o r questions. She was titrated off morphine and she is taking [place] 10 mg 2 tablets q.6 hours p.r.n. that is the only prescription she needed and has been sent into [facility] from my office. PHYSICAL EXAMINATION: VITAL SIGNS: On the day of discharge, she is afebrile, heart rate is 95, respirations of 14, oxygen saturation is 100% and blood pressure is 140/70. CARDIOVASCULAR SYSTEM: S1, S2 plus. RESPIRATORY SYSTEM: Normal vesicular breath sounds. ABDOMEN: Soft, nontender, bowel sounds heard in all quadrants. EXTREMITIES: Without cyanosis or clubbing. Peripheral pulses are palpable. CENTRAL NERVOUS SYSTEM: Grossly nonfocal. Trace edema, left leg. LABORATORY VALUES: Laboratory values from this morning are pending. She was supposed to get INR don e since her INR was 4.40. Yesterday, her Coumadin has been on hold. I advised her that she should h old it today and tomorrow and resume Coumadin on Thursday. She is to get a repeat PT/INR with her phys icians Thursday or Thursday. She stated she has an appointment on Thursday. DISCHARGE MEDICATIONS: 1. [place] 10/325 one to two tablets q.6 hours p.r.n. 2. Bromocriptine 2.5 mg b.i.d. 3. Rocaltrol 0.5 mcg daily. 4. Vitamin D3 2000 international units daily. 5. Colace 200 mg b.i.d. 6. Cymbalta 60 mg daily. 7. Insulin 30 units subcutaneously b.i.d. 8. Protonix 80 mg at nighttime. 9. Dilantin ER 300 mg daily. 10. MiraLax 17 grams in 8 ounce of water, which is as needed. 11. Warfarin 5 mg alternating with 10 mg to 5 mg is on Thursday, Thursday, Thursday, , Thursday, and 10 mg just on Thursday and Thursday. DIET: She is to continue on 1800 calorie heart healthy diet. She is to call us with any questions o r concerns. ACTIVITY: With orthopedic restrictions. Discussed with the patient in detail and all questions answ ered. Total time spent on this discharge including discharge instructions is 35 minutes.
[2017-08-01] MEDS ORDERED: Warfarin Sodium 5 MG TAB PO SCH (17:00)
== END 2017-07-31 11:17 | disposition home or self-care (01) | DRG 560 ==
LOC: NAV ACUTE 10:40
PROVIDERS: ADMIT Internal Medicine; ATTEND Internal Medicine
DX: Z47.1 Aftercare following joint replacement surgery (principal); Z68.43 Body mass index [BMI] 50.0-59.9, adult; E11.42 Type 2 diabetes mellitus with diabetic polyneuropathy; E11.649 Type 2 diabetes mellitus with hypoglycemia without coma; E31.21 Multiple endocrine neoplasia [MEN] type I; Z86.718 Personal history of other venous thrombosis and embolism; R32 Unspecified urinary incontinence; E21.3 Hyperparathyroidism, unspecified; Z79.01 Long term (current) use of anticoagulants; Z79.899 Other long term (current) drug therapy; Z95.9 Presence of cardiac and vascular implant and graft, unspecified; G47.33 Obstructive sleep apnea (adult) (pediatric); E66.01 Morbid (severe) obesity due to excess calories; Z96.653 Presence of artificial knee joint, bilateral; Z88.1 Allergy status to other antibiotic agents; Z88.0 Allergy status to penicillin; Z88.8 Allergy status to other drugs, medicaments and biological substances; D35.2 Benign neoplasm of pituitary gland; K59.00 Constipation, unspecified; F41.8 Other specified anxiety disorders; G89.4 Chronic pain syndrome
CPT/HCPCS: 36415; 36416; 80048; 80185; 85014; 85018; 85025; 85049; 85610; 87070; 87077; 87086; 87186; 87205; A4216; C1751; G8978-GP-CL; G8979-GP-CI; J2270